=== PATIENT | female | born 1980 | race African-American/Black ===

== ENCOUNTER 2023-01-06 00:53 | Day surgery (SDC) | payer OTHER, SELFPAY ==
[2022-12-26 13:03] VITALS: BMI 34.4
--- NOTE | 2022-12-26 13:07 | PC.NURSE ---
Report to the Outpatient Waiting Room, entrance under the green pavilion located off [facility], at time 0630 on date 01/06/23. Planned Procedure Time: 0830. Time changes happen often and if your time is changed the preop area will call you the afternoon before. - You and your visitor will be asked to self-screen and do not enter if you have any COVID symptoms. - Only one visitor is requested with a max of two and NO children visitors are allowed at this time. - The patient visitor may be requested to leave or wait in car when not with patient due to distancing restrictions. - A mask is optional within the hospital at this time. Patients may have clear liquids (water, carbonated beverages, clear teas, apple juice) until 3 hours prior to surgery with a maximum of 20 ounces. - No food from midnight until time of surgery Take the following medications with a SIP of water the morning of surgery: NONE DO NOT STOP ANY OF YOUR OTHER PRESCRIPTION MEDICATIONS PRIOR TO SURGERY ?EXCEPT THE FOLLOWING Medications to discontinue per physician: VITAMINS/SUPPLEMENTS Date to take last dose: 01/03/23 Please no make-up, nail comoran, hairspray, perfume, deodorant, or body powder the day of surgery. No jewelry (including any body piercings) or valuables the day of surgery, leave them at home. Please take a shower or bath the night before, or the morning of, surgery with an antibacterial soap. Wear comfortable, loose fitting clothing. - Jewelry must be removed prior to entering the operating room. Rings and piercings that are not removed may be cut off. - The hospital will not accept responsibility for valuables. - Please leave all valuables, including medications, at home the day of surgery. If you are going home after surgery, a licensed class a regional drivers must drive you home. - NO public transportation without another adult if you receive anesthesia. - We recommend that an adult stay with you for 24 hours following discharge. - We also recommend that you do not drive, make important decision, drink alcoholic beverages, or take any drugs that were not prescribed by your health care provider for at least 24 hours after your discharge time. Follow any additional instructions given to you from your surgeon. If you or anyone in your household have experienced Covid symptoms in the past week, please notify your surgeon or the nurse liaison at the phone number below for possible testing. Telephone instructions given to RHIANNON CABELLO and asked if any additional questions and then verbalized understanding. Patient advised to call surgeon office or pre surgery nurse liaison [phone] if any additional questions.
[2023-01-06 06:28] VITALS: BP 134/88; PULSE 88; RESP 20; TEMP 36.3; O2SAT 96
[2023-01-06] MEDS: LACTATED RINGERS 1,000 ML 30 ML IV CONT (06:50)
[2023-01-06] MEDS: ACETAMINOPHEN 500 MG TABLET 1000 MG PO (06:53)
[2023-01-06 07:06] LABS: Hematocrit 35.2 % (37.0-47.0); Hemoglobin 11.8 g/dL (12.0-15.0)
--- NOTE | 2023-01-06 07:20 | WPDHPUPDATE1 ---
History and Physical Update Update Date/Time: 01/06/23 07:20 History and Physical has been reviewed, including an updated exam of the patient. There are NO changes in the patient's condition. Risks, benefits, and alternatives have been discussed and questions answered. Patient agrees to proceed with procedure.
--- NOTE | 2023-01-06 07:20 | PM.HPGS ---
History of Present Illness History of Present Illness Consent: Risks, benefits, and alternatives have been discussed and questions answered. Patient agrees to proceed with procedure. Chief complaint: Menorrhagia with Anemia Narrative: Allen Ramírez is a 42 year old female seen as a new patient as referral from hematology for anemia. Patient has been receiving iron infusions. Patient states her cycles are heavy and monthly but she uses 3 pads at a time. It was recommended to proceed with D&C hysteroscopy for further evaluation. Risks of infection, bleeding, perforation, and possible pathology are reviewed. Patient voices understanding and agrees to proceed. Review of Systems Review of Systems: not repeated day of surgery; patient states no changes in status PMFSH Past Medical History Medical History (Updated 01/06/23 @ 07:24 by Zenia Flor MD) (normal spontaneous vaginal delivery) x4 Surgical History Surgical History (Updated 01/06/23 @ 07:22 by Zenia Flor MD) History of bilateral tubal ligation History of D&C History of hand surgery Social History Social History Smoking status: Never smoker Alcohol intake: never Substance use: never Substance use type: does not use Living arrangements: with family Additional living arrangements comments: CHILDREN Spiritual care concerns: No Meds Home Medications and Allergies Home Medications Medication Instructions Recorded Confirmed Type ferrous sulfate 325 mg (65 mg 325 mg PO BID 10/14/22 01/06/23 History iron) tablet ergocalciferol (vitamin D2) 1,250 50,000 mcg PO WEEKLY 12/26/22 01/06/23 History mcg (50,000 unit) capsule Allergies Allergy/AdvReac Type Severity Reaction Status Date / Time No Known Allergies Allergy Verified 01/06/23 06:29 Vital Signs Vital Signs - 24 hr 01/06/23 06:11 Temperature 97.3 F L Pulse Rate 88 Respiratory Rate 20 Blood Pressure 134/88 Pulse Oximetry 96 Oxygen Delivery Room Air Exam Const: General: healthy appearing and alert Orientation/consciousness: patient oriented x3 Resp: Effort & Inspection: normal respiratory effort Auscultation: clear to auscultation bilaterally Cardio: Rate: regular rate Rhythm: regular rhythm GI: GI Palp: Yes Soft to palpation, No Tenderness to palpation present (GI) and No Palpable mass present : External Female Exam: normal external appearance Speculum Exam - Vagina: normal appearance of the vagina and normal vaginal discharge Speculum Exam - Cervix: Other cervical findings present ( pulled very anterior cannot palpate or visualize) Bimanual exam- vagina & uterus: consistency normal and enlarged Bimanual Exam- Adnexa, other: normal adnexae and No adnexal tenderness Neuro: General: patient oriented x3 Assessment and Plan Assessment and plan (1) Menorrhagia: Code(s): N92.0 - Excessive and frequent menstruation with regular cycle Status: Acute Assessment and Plan: plan to proceed with D&C hysteroscopy
--- NOTE | 2023-01-06 07:36 | SUR.PREOP ---
0611 CHARTING TIME CORRECTION SHOULD BE 0628-TIME ENTERED IN ERROR.
--- NOTE | 2023-01-06 07:59 | P.PNAN_ITS ---
Anes - Initial Pre Proc Eval Procedure: Operation Date: 01/06/23 08:30 Proposed Procedures p Hysteroscopy Dilation and Curettage - Zenia Flor MD Date/Time: 01/06/23 07:59 Surgeon: Zenia Flor MD Pre Op Diagnosis: Menorrhagia with Anemia Patient Data Age: 42 Gender: F Height: 1.7 m Weight: 117.1 kg Last Vital Signs Temp 97.3 F L 01/06/23 06:28 Pulse 88 01/06/23 06:28 Resp 20 01/06/23 06:28 BP 134/88 01/06/23 06:28 Pulse Ox 96 01/06/23 06:28 O2 Del Method Room Air 01/06/23 06:28 Allergies Allergy/AdvReac Type Severity Reaction Status Date / Time No Known Allergies Allergy Verified 01/06/23 06:29 Home Medications Medication Instructions Recorded Confirmed Type ferrous sulfate 325 mg (65 mg 325 mg PO BID 10/14/22 01/06/23 History iron) tablet ergocalciferol (vitamin D2) 1,250 50,000 mcg PO WEEKLY 12/26/22 01/06/23 History mcg (50,000 unit) capsule Laboratory Tests 01/06/23 06:52 Hgb 11.8 g/dL L g/dL (12.0-15.0) Hct 35.2 % L % (37.0-47.0) Patient hx anesthesia problems: none Family hx anesthesia problems: none Results Review: All pre-operative results and documents have been reviewed as part of the pre- operative evaluation. PMFSH Past Medical History Medical History (Updated 01/06/23 @ 07:24 by Zenia Flor MD) (normal spontaneous vaginal delivery) x4 Surgical History Surgical History (Updated 01/06/23 @ 07:22 by Zenia Flor MD) History of bilateral tubal ligation History of D&C History of hand surgery Social History Social History Smoking status: Never smoker Alcohol intake: never Substance use: never Substance use type: does not use Living arrangements: with family Additional living arrangements comments: CHILDREN Spiritual care concerns: No Anes - Eval Final PreProcedure Day of Procedure 01/06/23 07:59 Patient weight: morbidly obese Heart: regular rate and rhythm Lungs: clear to auscultation Airway: Mallampati scale class III Neurological: alert and oriented Last oral intake: >/= 8 hours ASA classification: III Emergent: no Anesthetic plan: proceed Anesthesia type and monitoring: general GIVS and standard monitoring Results Review: All pre-operative results and documents have been reviewed as part of the pre-operative evaluation. Informed Consent: The patient's anesthetic plan and its attendant risks and benefits were discussed with the patient/family/POA. Questions were solicited and answers provided to the satisfaction of the patient/family/POA.
[2023-01-06] MEDS: LIDOCAINE HCL 1% LOCAL INJ 20 ML VIAL 10 ML INFILTRATE (08:42)
--- NOTE | 2023-01-06 08:44 | W.PM.PROC2 ---
Procedure Note - Detailed Date of Procedure 01/06/23 Pre-op Diagnosis Menorrhagia with Anemia Post-op Diagnosis Same Procedure Performed D&C hysteroscopy with resection of polyp Surgeon Zenia Flor MD Anesthesia MAC and Local Findings the uterus sounds to 10cm; there is an irregular polyp on the right pelvic mid fundus; endometrium appears otherwise normal Description of Procedure The patient was taken to the operating room and placed under anesthesia in the dorsal lithotomy position. She was prepped and draped in the usual sterile fashion. [place] speculum was placed in the vagina and the cervix grasped on the anterior lip with a tenaculum. The cervix is injected in each quadrant with 1% lidocaine. The uterus sounds to 10cm. The hysteroscope was placed with the above-stated findings. The Aveeta resection device is placed and under direct visualization the polyp was removed in its entirety. The hysteroscope was removed and the sharp curette used to curette the endometrium until a good uterine cry is noted in all areas. All instruments were then removed. Sponge, needle, and instrument counts are correct per the OR staff. Estimated Blood Loss 5 Drains No Packing No Pathology Yes ( Endometrial shavings and curettings) Complications No immediate complications Condition Stable Disposition PACU
[2023-01-06 08:47] VITALS: BP 103/53; PULSE 65; RESP 15; O2SAT 95
[2023-01-06 09:15] VITALS: BP 113/60; PULSE 55; RESP 20
[2023-01-06 09:45] VITALS: BP 95/57; PULSE 56; RESP 20
== END 2023-01-06 09:55 | disposition home or self-care (01) ==
PROVIDERS: Anesthesiology; PCP Nurse Practitioner Family; Visit Provider Obstetrics & Gynecology Gynecology
PROC: 0U5B8ZZ Destruction of Endometrium, Via Natural or Artificial Opening Endoscopic (ICD-10-PCS; CPT 58563; principal; 2023-01-06 08:30)
DX: N92.0 Excessive and frequent menstruation with regular cycle (principal); D64.9 Anemia, unspecified; N84.0 Polyp of corpus uteri; E66.01 Morbid (severe) obesity due to excess calories; Z68.41 Body mass index [BMI] 40.0-44.9, adult
CPT/HCPCS: 58558; 36415; 85014; 85018; 88305; A9270; J2250; J2704; J3010; J7120

== ENCOUNTER 2023-01-22 12:06 | Outpatient (CLI) | payer OTHER, SELFPAY ==
--- NOTE | ~2023-01-22 | US_ITS ---
Pelvic ultrasound. Clinical History: Abnormal uterine bleeding Technique: Realtime transabdominal and transvaginal scanning of the pelvis was performed. Color flow Doppler and Doppler spectral analysis were performed. Findings: The uterus is anteverted, and measures 10.6 x 6.0 x 5.4 cm. The endometrial stripe has a t hickness of 11 mm. No definite focal myometrial mass is identified. Probable cervical nabothian cysts noted. The right ovary measures 3.4 x 2.2 x 2.4 cm. No significant right ovarian or adnexal mass is seen. V ascular flow present in the right ovarian Doppler spectral analysis. The left ovary is not visualized. No significant left ovarian or adnexal mass is seen. There is no evidence of free fluid in the cul de sac. Impression: No significant abnormality seen. Reviewed, dictated and finalized at [facility]. Impression: No significant abnormality seen.
== END 2023-01-22 12:07 | disposition home or self-care (01) ==
PROVIDERS: PCP Nurse Practitioner Family; Visit Provider Obstetrics & Gynecology Gynecology
DX: N93.8 Other specified abnormal uterine and vaginal bleeding (principal)
CPT/HCPCS: 76830; 76856

== ENCOUNTER 2024-06-15 15:44 | Outpatient (CLI) | payer OTHER, MEDICAID, SELFPAY ==
--- NOTE | ~2024-06-15 | US_ITS ---
EXAMINATION: US pelvic complete w TV DATE: 06/15/2024 17:45 INDICATION: ovarian cyst TECHNIQUE: Multiple transabdominal and endovaginal sonographic images of the pelvis were obtained. COMPARISON: 01/22/2023. FINDINGS: Uterus: 11.3 x 5.8 x 5.2 cm. Heterogeneous hypervascular area in the anterior uterine body measuring approximately 4.8 cm. Endometrial complex measures 10 mm. Nabothian cysts. Right Ovary: 3.3 x 2.1 x 2.1 cm. Vascular flow is present. 1.6 cm simple ovarian cyst versus dominant follicle. Left Ovary: 2.8 x 2.1 x 1.7 cm. Vascular flow is present. No adnexal mass There is no free fluid in the pelvis. IMPRESSION: 4.8 cm fibroid versus focal adenomyosis. Reviewed, dictated and finalized at location [facility].
== END 2024-06-15 15:45 | disposition home or self-care (01) ==
LOC: ANHIMG 15:46
PROVIDERS: PCP Nurse Practitioner Family; Visit Provider Obstetrics & Gynecology Gynecology
DX: N83.209 Unspecified ovarian cyst, unspecified side (principal); D25.9 Leiomyoma of uterus, unspecified
CPT/HCPCS: 76830; 76856